=== PATIENT | female | born 1990 | race Caucasian/White ===

== ENCOUNTER 2023-03-03 16:32 | Emergency (ER) | payer OTHER ==
[~2023-03-03] VITALS: Ht 170.2 cm; Wt 64.4 kg
[2023-03-03 16:49] VITALS: BP_SYST 127; PULSE 68; RESP 18; TEMP 98.3; O2SAT 98
[2023-03-03 17:08] LABS: BILIRUBIN,URINE NEGATIVE (NEGATIVE); CLARITY/URINE CLEAR (CLEAR); COLOR,URINE YELLOW (YELLOW); GLUCOSE,URINE NEGATIVE (NEGATIVE); KETONES,URINE NEGATIVE (NEGATIVE); LEUKOCYTE ESTERASE ,URINE NEGATIVE (NEGATIVE); NITRITE, URINE NEGATIVE (NEGATIVE); PROTEIN URINE NEGATIVE (NEGATIVE); UROBILINOGEN,URINE 0.2 (0.2-1.0)
[2023-03-03] MEDS ORDERED: ONDANSETRON 4 MG ODT TAB PO ONE (17:15)
[2023-03-03] MEDS ORDERED: MORPHINE 4 MG INJ. 4 MG/ML VIAL IM ONE (17:15)
[2023-03-03 17:20] LABS: BACTERIA,URINE FEW /HPF (None Seen); BLOOD, URINE TRACE (NEGATIVE); RBC,URINE NONE SEEN /HPF (0-3); WBC,URINE 0-3 /HPF (0-3)
[2023-03-03 17:21] LABS: HCG,QUAL RESULT NEGATIVE (NEGATIVE); MUCUS,URINE None Seen /LPF (None Seen)
[2023-03-03] MEDS ORDERED: IBUP-1971 PO (18:45)
[2023-03-03] MEDS ORDERED: DOXY100T2 PO (18:45)
[2023-03-03] MEDS ORDERED: AZIT500T3 PO (18:45)
== END 2023-03-03 19:02 | disposition home or self-care (01) ==
LOC: SED 16:32
DX: R10.2 Pelvic and perineal pain (principal); Z88.0 Allergy status to penicillin; Z88.5 Allergy status to narcotic agent; Z79.899 Other long term (current) drug therapy
CPT/HCPCS: 99285; 76830; 76857; 81000; 84703; 36415; 96372; 87491; Q0162; J2270

== ENCOUNTER 2023-03-05 18:39 | Emergency (ER) | payer OTHER ==
[~2023-03-05] VITALS: Ht 170.2 cm; Wt 64.4 kg
[~2023-03-05 18:39] MED LIST: AZIT500T3 PO; DOXY100T2 PO; IBUP-1971 PO
[2023-03-05 19:16] VITALS: BP_SYST 115; PULSE 62; RESP 18; TEMP 97.9; O2SAT 98
[2023-03-05 19:50] LABS: BASOPHILS % (AUTO) 0.4 % (0.0-2.0); EOSINOPHILS # (AUTO) 0.2 K/uL (0.0-0.4); EOSINOPHILS % (AUTO) 2.5 % (0.0-4.0); HEMATOCRIT 41.8 % (36-48); LYMPHOCYTES # (AUTO) 2.1 K/uL (1.0-5.5); LYMPHOCYTES % (AUTO) 32.7 % (20.5-51.5); MEAN CORPUSCULAR HEMOGLOBIN 30 pg (27-31); MEAN CORPUSCULAR HGB CONC 33 % (32-36); MEAN CORPUSCULAR VOLUME 89 fL (79.0-98.0); MONOCYTES # (AUTO) 0.5 K/uL (0.0-1.0); MONOCYTES % (AUTO) 7.4 % (1.7-9.3); NEUTROPHILS # (AUTO) 3.6 K/uL (1.8-7.7); PLATELET COUNT (AUTO) 223 K/uL (130-430); RED BLOOD CELL COUNT(AUTO) 4.71 MIL/uL (4.2-6.2); RED CELL DISTRIBUTION WIDTH 13.3 % (9.0-15.0); WHITE BLOOD COUNT (AUTO) 6.4 K/uL (4.8-10.8)
[2023-03-05 20:07] LABS: CALCIUM 9.1 mg/dL (8.4-11.0); CREATININE 0.91 mg/dL (0.55-1.30)
[2023-03-05 20:12] LABS: TOTAL BILIRUBIN 0.4 mg/dL (0.0-1.0); TOTAL PROTEIN, SERUM 7.4 g/dL (6.4-8.3)
== END 2023-03-05 22:50 | disposition left against medical advice (07) ==
LOC: SED 18:39
DX: R10.2 Pelvic and perineal pain (principal); Z53.21 Procedure and treatment not carried out due to patient leaving prior to being seen by health care provider
CPT/HCPCS: 36415; 80053; 85025; 99281

== ENCOUNTER 2023-08-27 08:52 | Emergency (ER) | payer OTHER ==
[~2023-08-27] VITALS: Ht 170.2 cm; Wt 63.5 kg
[~2023-08-27 08:52] MED LIST changes: +AZIT500T PO; -AZIT500T3 PO
[2023-08-27 08:57] VITALS: BP_SYST 153; PULSE 82; RESP 16; TEMP 97.7; O2SAT 99
[2023-08-27] MEDS: PROCHLORPERAZINE EDISYLATE 10 MG/2 ML VIAL IM ONE (09:26)
[2023-08-27] MEDS: KETOROLAC TROMETHAMINE 60 MG/2 ML VIAL IM ONE (09:26)
[2023-08-27] MEDS: HYDROcodone/ACETAMIN 5-325 MG TAB (NORCO/ VICODIN) PO ONE (10:48)
[2023-08-27] MEDS ORDERED: HYDR-3917 PO (11:22)
[2023-08-27 11:26] VITALS: BP_SYST 142; PULSE 80; RESP 16; TEMP 97.8; O2SAT 100
== END 2023-08-27 11:29 | disposition home or self-care (01) ==
LOC: SED 08:52
DX: G44.209 Tension-type headache, unspecified, not intractable (principal); Z88.0 Allergy status to penicillin; Z88.5 Allergy status to narcotic agent
CPT/HCPCS: 99285; 70450; 70150; 81025; 96372; J1885; J0780